=== PATIENT | male | born 1970 | race Asian ===

== ENCOUNTER 2019-03-27 16:27 | Emergency (ER) | payer MEDICARE, OTHER ==
[~2019-03-27] VITALS: Ht 162.6 cm; Wt 70.5 kg
[2019-03-27] MEDS ORDERED: LISI-662 PO (16:43)
[2019-03-27] MEDS ORDERED: LIDOCAINE/PF 2% 5 ML VIAL INJ ONE (17:30)
[2019-03-27] MEDS ORDERED: BACITRACIN 0.9 GM PACKET OINTMENT TP ONE (17:30)
[2019-03-27] MEDS ORDERED: IBUPROFEN 400 MG TABLET PO ONE (17:30)
[2019-03-27 18:49] VITALS: BP 141/83
== END 2019-03-27 18:58 | disposition home or self-care (01) ==
LOC: EMS 16:28
DX: S41.011A Laceration without foreign body of right shoulder, initial encounter (principal); I10 Essential (primary) hypertension; F17.210 Nicotine dependence, cigarettes, uncomplicated; Z79.899 Other long term (current) drug therapy; W26.8XXA Contact with other sharp object(s), not elsewhere classified, initial encounter; Y93.89 Activity, other specified; Y92.89 Other specified places as the place of occurrence of the external cause; Y99.8 Other external cause status
CPT/HCPCS: 12002; 99283; 99406; J3490